=== PATIENT | male | born 1990 | race Caucasian/White ===

== ENCOUNTER 2020-11-24 08:17 | Outpatient (CLI) | payer BC, SELFPAY ==
--- NOTE | ~2020-11-24 | XR_ITS ---
EXAMINATION: XR chest 2V EXAM DATE: 11/24/2020 08:28 INDICATION: R60.9 - Edema, unspecified. TECHNIQUE: Frontal and lateral projections of the chest obtained and reviewed. There is no prior ankit dy for comparison. FINDINGS: The lungs are clear. There are no pleural effusions. The cardiomediastinal silhouette is within normal limits. There is no pneumothorax suspected. The bones and soft tissues are unremarkab le. IMPRESSION: Normal chest x-ray exam. Reviewed, dictated and finalized at location A. RAFT STRUCTURAL FITTER IMPRESSION: Normal chest x-ray exam.
== END 2020-11-24 08:18 | disposition home or self-care (01) ==
LOC: ANHBWCIMG 08:20
PROVIDERS: PCP Family Medicine; Visit Provider Family Medicine
DX: R60.9 Edema, unspecified (principal)
CPT/HCPCS: 71046

== ENCOUNTER 2020-12-16 10:26 | Emergency (ER) | payer BC, SELFPAY ==
[2020-12-16 10:36] VITALS: BP 135/59; PULSE 87; RESP 16; TEMP 36.6; O2SAT 100
[2020-12-16 10:47] VITALS: BP 135/59; PULSE 87; RESP 16; TEMP 36.6; O2SAT 100
[2020-12-16 10:55] VITALS: BP 135/59; PULSE 87; RESP 16; TEMP 36.6; O2SAT 100
--- NOTE | 2020-12-16 11:03 | ED.GENADULT ---
HPI - General Adult General Chief complaint: Allergic Reaction Stated complaint: Allergic Reaction Time Seen by Provider: 12/16/20 10:31 Source: patient Mode of arrival: ambulatory Limitations: no limitations History of Present Illness HPI narrative: 30 y/o male. PMH includes: None reported. Presents to ED today with acute complaints of possible allergic reaction/food allergen since 1999 last HS. He reports to have consumed a new rib rub while having ribs for family dinner. Pt reports that respectively 20 minutes following consumption he began to experience a 'scratchy throat and a rash to his chest'. Client had taken home Benadryl and noted relief within the hour . However, he is still concerned for residual rash now located to his bilateral wrists. There is mild pruritus, no pain. He denies further torso rash or airway concerns. No facial or oral swelling. No dyspnea, dysphagia, or involuntary drooling. He is without additional complaints upon exam. Related Data Allergies Allergy/AdvReac Type Severity Reaction Status Date / Time No Known Allergies Allergy Verified 12/16/20 10:55 Review of Systems Review of Systems: Narrative: CONSTITUTIONAL: Denies fever, chills, sweats. EYES: Denies visual changes, redness, discharge. ENT: Denies rhinorrhea, congestion, sore throat, otalgia. CARDIOVASCULAR: Denies chest pain, palpitations, edema. RESPIRATORY: Denies dyspnea, wheezing, cough GASTROINTESTINAL: Denies abdominal pain, nausea, vomiting, diarrhea. GENITOURINARY: Denies dysuria, hematuria, abnormal discharge SKIN: Positive rash and itching bilateral wrists. MUSCULOSKELETAL: Denies acute back pain, joint pain, or myalgia. NEUROLOGIC: Denies numbness, or focal weakness. PSYCHIATRIC: Denies anxiety or depression. All systems reviewed & are unremarkable except as noted in HPI and below (HPI ) [facility] Past Medical History Medical History Depression Family History Family History Father Family history of gastrointestinal disorder Acute Crohn's disease Social History Social History Smoking status: Never smoker Second hand tobacco smoke exposure: No Alcohol intake: current Comments At time of signature, I agree with nursing past medical, surgical, social and family history. There is no relevant family history pertinent to the presenting complaint. Exam Narrative: Exam Narrative: GENERAL: This is a well-nourished, well-developed patient, in no apparent distress. HEAD: normocephalic, atraumatic. EYES: PERRL. Sclera clear/white. EARS: External ears normal, auditory canals clear and without drainage. NOSE: External nose normal with no obvious nasal discharge, nares without redness, no rhinorrhea. THROAT: Mucous membranes moist, posterior pharynx clear. No pharyngeal or mucous membrane swelling. NECK: Neck supple, non-tender without lymphadenopathy, masses or thyromegaly. CARDIOVASCULAR: Regular rate and rhythm without murmurs, gallops, or rubs. RESPIRATORY: No stridor. Clear to auscultation. Breath sounds equal bilaterally. No wheezes, rales, or rhonchi. GASTROINTESTINAL: Abdomen soft, non-tender, nondistended. Bowel sounds are active. No hepato-splenomegaly, or palpable masses. No guarding. SKIN: warm, intact. With noted fine scattered red rash to inner wrists bilaterally. Superficial scratches most likely from reported pruritus. No open wounds or additional integumentary sites of involvement. NEURO: awake, alert, and oriented to person, place and time. There were no obvious focal neurologic abnormalities. Steady gait Course Course Emergency Course: -30 y/o male. -No reported PMH. -CC rash bilateral wrists secondary to potential food allergen. -Time of consumption > 12 hours ago. -No airway distress or oral involvement. -He is spe
[2020-12-16] MEDS: predniSONE 20 MG TABLET 40 MG PO (11:06)
== END 2020-12-16 11:11 | disposition home or self-care (01) ==
PROVIDERS: Emergency Provider Nurse Practitioner Adult Health; PCP Family Medicine
DX: R21 Rash and other nonspecific skin eruption (principal); T78.1XXA Other adverse food reactions, not elsewhere classified, initial encounter
CPT/HCPCS: 99213; G0463; J7512

== ENCOUNTER 2022-06-19 08:14 | Outpatient (CLI) | payer OTHER, SELFPAY ==
[2022-06-19 18:41] LABS: Alanine Aminotransferase 34 U/L (6-50); Albumin Level 4.3 g/dL (3.5-5.1); Alkaline Phosphatase 113 U/L (38-126); Aspartate Amino Transferase 131 U/L (17-59); Basophils Percent Auto 0.6 % (0.2-1.2); Bilirubin,Total 0.4 mg/dL (0.2-1.3); Eosinophils Absolute Auto 0.1 K/mm3 (0-0.3); Eosinophils Percent Auto 1.8 % (0-4.4); Hematocrit 49.5 % (42.0-52.0); Hemoglobin 15.9 g/dL (14.0-18.0); Immature Granulocyte Absolute 0.04 K/mm3 (0.00-0.031); Immature Granulocyte Percent A 0.6 % (0-0.5); Lymphocytes Absolute Auto 2.68 K/mm3 (0.9-3.2); Lymphocytes Percent Auto 39.5 % (18.3-44.2); Mean Corpuscular HGB Conc 32.1 g/dl (32-36); Mean Corpuscular Hemoglobin 30.1 pg (26-34); Mean Corpuscular Volume 93.8 fl (80-100); Mean Platelet Volume 10.2 fl (7.4-10.4); Monocytes Absolute Auto 0.8 K/mm3 (0.1-0.6); Monocytes Percent Auto 11.2 % (2.6-8.5); Neutrophils Absolute Auto 3.2 K/mm3 (1.3-6.7); Neutrophils Percent Auto 46.3 % (45.5-73.1); Platelet Count Result 207 k/mm3 (150-375); Red Blood Count 5.28 M/mm3 (4.6-6.20); Red Cell Distribution Width 13.3 % (11.5-14.5); White Blood Count 6.8 K/mm3 (4.5-10.0)
[2022-06-24 16:29] LABS: Testosterone Free 189.9 pg/mL (35.0-155.0); Testosterone Total 671 ng/dL (250-1100)
[2022-06-25 14:36] LABS: Estrogen 179.5 pg/mL (60-190)
== END 2022-06-19 08:15 | disposition home or self-care (01) ==
LOC: ANHBWCLAB 08:15
PROVIDERS: PCP Family Medicine; Visit Provider Family Medicine
DX: D75.1 Secondary polycythemia (principal); E29.1 Testicular hypofunction; R74.8 Abnormal levels of other serum enzymes; R79.89 Other specified abnormal findings of blood chemistry; R73.09 Other abnormal glucose
CPT/HCPCS: 36415; 80076; 82672; 84402; 84403; 85025

== ENCOUNTER → 2025-06-17 13:03 | Outpatient (CLI) | payer BC, SELFPAY ==
--- NOTE | ~2025-06-17 | XR_ITS ---
EXAMINATION: XR shoulder LT min 2V, XR shoulder RT min 2V DATE: 06/17/2025 13:24 INDICATION: Bilateral shoulder joint effusions TECHNIQUE: 1. AP internally and externally rotated, AP oblique externally rotated and transscapular Y views of t he right shoulder were obtained. 2. AP internally and externally rotated, AP oblique externally rotated and transscapular Y views of t he left shoulder were obtained. COMPARISON: None FINDINGS: Right shoulder: Normal alignment. No fracture. Glenohumeral joint is normal. Mild acromioclavicular osteoarthritis. There is soft tissue swelling cephalad to the lateral head of the right clavicle slightly medial to t he acromioclavicular joint space against joint effusion although could represent a ganglion cyst. Sof t tissues are otherwise unremarkable. Right lung is clear with no pleural effusion. Left shoulder: Normal alignment. No fracture. Glenohumeral joint is normal. Mild left acromioclavicular osteoarthri tis. Nonspecific 9.6 x 3.7 cm subcutaneous mass lateral to the proximal left humerus with suggestion of internal layering fat fluid levels. Visualized portion of the left lung which excludes the left lana ng base is clear. IMPRESSION: 1. Mild bilateral acromioclavicular osteoarthritis. No acute osseous abnormality. 2. 9.6 x 3.7 cm lobular mass at the left shoulder lateral to the proximal left humerus with suggestio n of internal fat/fluid levels which could represent a complex cyst, atypical lipoma or with other ne oplasm either benign or malignant. Consider further evaluation with pre and postcontrast MRI. 3. Nonspecific mild focal soft tissue swelling cephalad to the lateral head of the right clavicle wit hout definitive mass. Could also consider further evaluation with pre and postcontrast MRI or ultraso und. Reviewed, dictated and finalized at location A. IMPRESSION: 1. Mild bilateral acromioclavicular osteoarthritis. No acute osseous abnormalit y. 2. 9.6 x 3.7 cm lobular mass at the left shoulder lateral to the proximal left humerus with suggestion of internal fat/fluid levels which could represent a co mplex cyst, atypical lipoma or with other neoplasm either benign or malignant. Consider further evaluation with pre and postcontrast MRI. 3. Nonspecific mild focal soft tissue swelling cephalad to the lateral head of the right clavicle without definitive mass. Could also consider further evaluat ion with pre and postcontrast MRI or ultrasound.
--- NOTE | ~2025-06-17 | XR_ITS ---
EXAMINATION: XR chest 2V DATE: 06/17/2025 13:23 INDICATION: Shortness of breath. Hemoptysis TECHNIQUE: Frontal and lateral images of the chest were obtained. COMPARISON: None FINDINGS: Heart is not enlarged. No pneumothorax. No pleural effusion. No free air under the diaphragm. No foca l pulmonary consolidation. IMPRESSION: 1. No focal pulmonary consolidation. If symptoms persist or worsen, consider a short-term follow-up study or additional imaging for furthe r assessment. Reviewed, dictated and finalized at location A. IMPRESSION: 1. No focal pulmonary consolidation. If symptoms persist or worsen, consider a short-term follow-up study or additio nal imaging for further assessment.
--- OUTSIDE RECORDS SUMMARY | 2025-06-17 13:07 | XMS_ITS | Patient Health Record ---
Author Organization [facility] [employer] Address [address] [facility] [address] [place] [address] Care Team Providers Care Pecan Grower Name Role Phone Zen Solorio Unavailable [phone] Reason For Referral No Information Medications Medication SIG (Take, Route, Frequency, Duration) Notes Start Date End Date Status Amoxicillin-Pot Clavulanate 875-125 MG Oral Active hydrOXYzine HCl 50 MG Oral Active buPROPion HCl ER (XL) 150 MG Oral Active ID Now COVID-19 In Vitro *Reorder from [facility] for eRx and Interaction Alerts* Active FLUoxetine HCl 20 MG Oral Active FLUoxetine HCl 40 MG Oral Active Plan Of Treatment No Information Insurance Providers Payer Name Payer Address Payer Phone Subscriber Number Group Number Insured Name Patient Relationship to Insured Coverage Start Date Coverage End Date [facility] [address] [place] [address] [id number] ANGEL ECHEVERRIA Self - patient is the insured
--- OUTSIDE RECORDS SUMMARY | 2025-06-17 13:07 | XMS_ITS | Continuity of Care Document ---
Author Organization [facility], L Address [address] [place] [address] Phone Care Team Providers Care Conductor Freight Name Role Phone Brooks OD, Meredith Unavailable [...] Provider Providers Copied on Encounter [facility], [address] [place] [address], [id number] , tel:[phone] [facility] No Information 0 7 Brooks Harper. [address] [place] [address], [facility], [place]. tel:[phone], [id number] , [phone] [facility] No Information b-0 7 Brooks Harper. [address] [place] [address], [id number], [place]. tel:[phone] [facility], [address] [place] [address], [id number] , [place] tel:[phone] [facility] no problems with vision and no complaints (chief complaint) Myopia, bilateral Mar- 7-201 6 Oberreiter Zuleima. [address], [place], [place], [id number], [place]. [phone] Referring Provider: Elvin Sanchez, [address] [place] [address], [address] . tel:[phone] [facility], [address] [place] [address], [id number] , [place] tel:[phone] [facility] No Information Jan- 7 6 Oberreiter Zuleima. [address], [place], [place], [id number], [place]. tel:[phone] [facility], [address] [place] [address], [id number] , [place] tel:[phone] [facility] No Information Aug-0 8-201 5 Brooks Meredith. [address] [place] [address], [facility], . [phone] Referring Provider: Elvin Sanchez, [address] [place] [address], [id number] . tel:[phone] [facility], [address] [place] [address], [id number] , [place] tel:[phone] [facility] no problems with vision and no complaints (chief complaint)d efers dilation (chief complaint) MyopiaOther chronic allergic conjunctivitis Oct-2 -201 4 Oberreiter Zuleima. [address], [place], [place], [id number], [place]. tel:[phone] Referring Provider: Elvin Sanchez, [address] [place] [address], [id number] . tel:[phone] [facility], [address] [place] [address], [id number] , [place] tel: [phone] [facility] No Information 0 4 Bercarinetacatia Ruckera. [address] [place] [address], [id number], [place]. tel:[phone] Referring Provider: Elvin Sanchez, [address] [place] [address], [id number] . tel:[phone] [facility], [address] [place] [address], [id number] , [place] tel: [phone] [facility] No Information 4 Rooseveltcarinetacatia Albertaa. [address] [place] [address], [id number], [place]. tel:[phone] Referring Provider: Elvin Sanchez, [address] [place] [address], [address] . tel:[phone] [facility], [address] [place] [address], [id number] , tel:[phone] [facility] No Information 4 Rooseveltcarinetacatia Oconnor. [address] [place] [address], [id number], [place]. tel:[phone] Referring Provider: Elvin Sanchez, [address] [place] [address], [id number] . tel:[phone] [facility], [address] [place] [address], [id number] , [place] tel:[phone] [facility] No Information 4 Hamidatacatia Albertamila. [address] [place] [address], [id number], [place]. tel:[phone] Referring Provider: Elvin Sanchez, [address] [place] [address], [id number] . tel:[phone] [facility], [address] [place] [address], [id number] , tel:[phone] [facility] No Information 3 Bereketab Elilta. [address] [place] [address], [id number], [place]. tel:[phone] Referring Provider: Elvin Sanchez, [address] [place] [address], [id number] . tel:[phone] OFFICE/OUTPA TIENT VISIT, EST [facility], [address] [place] [address], [id number] , tel:[phone] [facility] Acute atopic conjunctivitisOthe r chronic allergic conjunctivitis 3 Bereketab Elilta. [address] [place] [address], [id number], [place]. tel:[phone] Referring Provider: Elvin Sanchez, [address] [place] [address], [id number] . tel:[phone] [facility], [address] [place] [address], [id number] , tel:[phone] [facility] Acute atopic conjunctivitisOthe r chronic allergic conjunctivitisMyop iaVitreous degeneration 3 Bereketab Elilta. [address] [place] [address], [id number], [place]. tel:[phone] Referring Provider: Elvin Sanchez, [address] [place] [address], [id number] . tel:[phone] [facility], [address] [place] [address], [id number] , tel:[phone] [facility] No Information 3 Bereketab Albertalta. [address] [place] [address], [id number], [place]. tel:[phone] Referring Provider: Elvin Sanchez, [address] [place] [address], [id number] . tel:[phone] [facility], [address] [place] [address], [id number] , tel:[phone] [facility] No Information 3 Bereketab Albertaa. [address] [place] [address], [id number], [place]. tel:[phone] Referring Provider: Elvin Sanchez, [address] [place] [address], [address] . tel:[phone] [facility], [address] [place] [address], [id number] , tel:[phone] [facility] No Information 3 Bereketab Albertaa. [address] [place] [address], [id number], [place]. tel:[phone] Referring Provider: Elvin Sanchez, [address] [place] [address], [address] . tel:[phone] [facility], [address] [place] [address], [id number] , tel:[phone] [facility] No Information 2 Bereketab Elilta. [address] [place] [address], [id number], [place]. tel:[phone] Referring Provider: Elvin Sanchez, [address] [place] [address], [address] . tel:[phone] [facility], [address] [place] [address], [id number] , tel:[phone] [facility] No Information 2 Bereketab Elilta. [address] [place] [address], [id number], [place]. tel:[phone] Referring Provider: Elvin Sanchez, [address] [place] [address], [address] . tel:[phone] [facility], [address] [place] [address], [id number] , tel:[phone] [facility] MyopiaVitreous degeneration 2 Bereketacatia Albertaa. [address] [place] [address], [id number], [place]. tel:[phone] Referring Provider: Elvin Sanchez, [address] [place] [address], [id number] . tel:[phone] [facility], [address] [place] [address], [id number] , tel: [phone] [facility] No Information 2 Bereketab Elilta. [address] [place] [address], [id number], [place]. tel:[phone] Referring Provider: Elvin Sanchez, [address] [place] [address], [address] . tel:[phone] [facility], [address] [place] [address], [id number] , [place] tel: [phone] [facility] No Information 2 Bereketab Elilta. [address] [place] [address], [id number], [place]. tel:[phone] [facility], [address] [place] [address], [id number] , [place] tel: [phone] [facility] No Information 2 Bereketab Elilta. [address] [place] [address], [id number], [place]. tel:[phone] Referring Provider: Elvin Sacnhez, [address] [place] [address], [address] . tel:[phone] [facility], [address] [place] [address], [id number] , tel:[phone] [facility] No Information 2 Bernicola Oconnor. [address] [place] [address], [id number], [place]. tel:[phone] Referring Provider: Elvin Sanchez, [address] [place] [address], [address] . tel:[phone] [facility], [address] [place] [address], [id number] , tel:[phone] [facility] No Information 1 Laura Oconnor. [address] [place] [address], [id number], [place]. tel:[phone] Referring Provider: Elvin Sanchez, [address] [place] [address], [address] . tel:[phone] [facility], [address] [place] [address], [id number] , tel:[phone] [facility] No Information 1 Laura Oconnor. [address] [place] [address], [id number], [place]. tel:[phone] Referring Provider: Elvin Sanchez, [address] [place] [address], [address] . tel:[phone] [facility], [address] [place] [address], [id number] , tel:[phone] [facility] No Information 1 Laura Oconnor. [address] [place] [address], [id number], [place]. tel:[phone] Referring Provider: Elvin Sanchez, [address] [place] [address], [address] . tel:[phone] [facility], [address] [place] [address], [id number] , tel:[phone] [facility] No Information 0201 1 Bereketab Alkaa. [address] [place] [address], [id number], [place]. tel:[phone] Referring Provider: Elvin Sanchez, [address] [place] [address], [id number] . tel:[phone] [facility], [address] [place] [address], [id number] , tel: [phone] [facility] No Information 0 Bereketab Albertaa. [address] [place] [address], [id number], [place]. tel:[phone] Referring Provider: Elvin Sanchez, [address] [place] [address], [address] . tel:[phone] [facility], [address] [place] [address], [id number] , tel: [phone] [facility] No Information 9201 0 Bereketab Elilta. [address] [place] [address], [id number], [place]. tel:[phone] Referring Provider: Elvin Sanchez, [address] [place] [address], [address] . tel:[phone] [facility], [address] [place] [address], [id number] , tel: [phone] [facility] No Information 7201 0 Bereketab Elvin. [address] [place] [address], [id number], [place]. tel:[phone] Referring Provider: Elvin Sanchez, [address] [place] [address], [address] . tel:[phone] [facility], [facility], [address] [place] [address], [id number] , [phone] [facility] No Information 0 Laura Oconnor. [address] [place] [address], [id number], [place]. tel:[phone] Family History Family Member Type Diagnosis Age At Onset Problem (finding) No Family history of St rabismus Great Grandfather Problem (finding) Diabetes mellitus Problem (finding) Family history of Heart Disease Problem (finding) No Family hist ory of Macular Degeneration Great Grandmother Problem (finding) glaucoma Problem (finding) No Family history of Ar thritis Great Grandfather Problem (finding) cataract Problem (finding) Family history of Respiratory Disease Problem (finding) No Family hist ory of Retinal Disorders Problem (finding) No Family history of As thma Problem (finding) No Family history of St roke Problem (finding) Family history of HBP Payers Payer name Insurance type Covered alliance party ID Authoriza tion(s) No Information Social History [...] exam today. No damage from cl wear. - Return in 1 year w ith EB for C/L Ref T & D. Related to Allergic Conjunctivitis Allergic Conjunctivi tis OU. Condition: improving. GPC [...] materials provided:none needed. Related to Allergic Conjunctivitis Allergic Conjunctivi tis OU. Condition: new prob, [...] rec. Poly in lenses. Related to PVD - Return in 2 weeks with EB for T and slamp. Related to PVD - Return in 1 year w ith EB for Ref T & D. Related to PVD Myopia OU. Condition : stable. PVD OU. Condition: stable. - PVD OU-ed pt on s/sx of RD, pt. to call stat if he notices any increase in theses.Myopia OU-Rx is pretty stable, glasses update is optional. Will have pt. stay with . [employer]. Rec. Uv protection when outdoors. Educational materials provided:none needed. Related to PVD Assessments Type Assessment Date No Information Patient Care Teams Name Effective Dates (start - stop) Status Members No Information
== END ==
PROVIDERS: PCP Nurse Practitioner Adult Health; Visit Provider Nurse Practitioner Adult Health
DX: M19.012 Primary osteoarthritis, left shoulder (principal); M25.412 Effusion, left shoulder; M19.011 Primary osteoarthritis, right shoulder; M25.411 Effusion, right shoulder; M85.612 Other cyst of bone, left shoulder; R04.2 Hemoptysis
CPT/HCPCS: 71046; 73030

== ENCOUNTER 2025-07-01 01:52 | Day surgery (SDC) | payer BC, SELFPAY ==
--- OUTSIDE RECORDS SUMMARY | 2016-12-07 05:04 | XMS_ITS | Continuity of Care Document ---
Author Organization [facility], L Address [address] [place] [address] Phone Care Team Providers Care Tobacco Grower Name Role Phone Brooks OD, Meredith Unavailable Unavailable Allergies, Adverse Reactions, Alerts Substance Reaction Status Criticality No Known Drug Allergies Active No I nformation Procedures Procedure Date CONTACT LENS, SOFT MULTI PKG SPHERE EYE EXAM, EXISTING PATIENT VISION REFRACTION OPTIONAL UPDATE CONTACT LENS, DISPOSABLE CONTACT LENS, DISPOSABLE EYE EXAM, EXISTING PATIENT VISION REFRACTION NO UPDATE CONTACT LENS EXAM CONTACT LENS, SOFT MULTI PKG SPHERE CONTACT LENS, SOFT MULTI PKG SPHERE CONTACT LENS, SOFT MULTI PKG SPHERE CONTACT LENS, SOFT MULTI PKG SPHERE CONTACT LENS, SOFT MULTI PKG SPHERE OFFICE/OUTPATIENT VISIT, EST EYE EXAM, EXISTING PATIENT VISION REFRACTION UPDATE CONTACT LENS EXAM CONTACT LENS, SOFT MULTI PKG SPHERE Vision svcs frames purchases Single Vision Lens Lens variab asphericity sing Lens Hi Index 1.66/1.67 Single Vision Lens Lens variab asphericity sing Lens Hi Index 1.66/1.67 A/R Standard UV Lens CONTACT LENS, SOFT MULTI PKG SPHERE CONTACT LENS, SOFT MULTI PKG SPHERE CONTACT LENS, SOFT MULTI PKG SPHERE INCLUDED CONTACT LENS EXAM EYE EXAM, EXISTING PATIENT VISION REFRACTION UPDATE CONTACT LENS EXAM CONTACT LENS, SOFT MULTI PKG SPHERE CONTACT LENS, SOFT MULTI PKG SPHERE CONTACT LENS, SOFT MULTI PKG SPHERE CONTACT LENS, SOFT MULTI PKG SPHERE INCLUDED CONTACT LENS EXAM CONTACT LENS EXAM CONTACT LENS, SOFT MULTI PKG TINTED EYE EXAM, EXISTING PATIENT VISION REFRACTION OPTIONAL UPDATE CONTACT LENS, SOFT MULTI PKG SPHERE CONTACT LENS EXAM CONTACT LENS, SOFT MULTI PKG SPHERE INCLUDED CONTACT LENS EXAM EYE EXAM, EXISTING PATIENT VISION REFRACTION OPTIONAL UPDATE CONTACT LENS EXAM CONTACT LENS, SOFT MULTI PKG SPHERE Advance Directives Directive Yes / No Effective Date File Name No Information Encounters Encounter Description Practice Location Reason(s) For Visit Diagnoses Date Provider Providers Copied on Encounter [facility], [address] [place] [address], [id number] , tel:[phone] [facility] No Information 0 7 Brooks Harper. [address] [place] [address], [facility], [place]. tel:[phone], [id number] , [phone] [facility] No Information b-0 7 Brooks Harper. [address] [place] [address], [id number], [place]. tel:[phone] [facility], [address] [place] [address], [id number] , [place] tel:[phone] [facility] no problems with vision and no complaints (chief complaint) Myopia, bilateral Mar- 7-201 6 Oberreiter Zuleima. [address], [place], [place], [id number], [place]. [phone] Referring Provider: Elvin Sanhcez, [address] [place] [address], [id number] . tel:[phone] [facility], [address] [place] [address], [id number] , [place] tel:[phone] [facility] No Information Jan- 7 6 Oberreiter Zuleima. [address], [place], [place], [id number], [place]. tel:[phone] [facility], [address] [place] [address], [id number] , [place] tel:[phone] [facility] No Information Aug-0 8-201 5 Brooks Meredith. [address] [place] [address], [facility], . [phone] Referring Provider: Elvin Sanchez, [address] [place] [address], [id number] . tel:[phone] [facility], [address] [place] [address], [id number] , [place] tel:[phone] [facility] no problems with vision and no complaints (chief complaint)d efers dilation (chief complaint) MyopiaOther chronic allergic conjunctivitis Oct-2 -201 4 Oberreiter Zuleima. [address], [place], [place], [id number], [place]. tel:[phone] Referring Provider: Elvin Sanchez, [address] [place] [address], [id number] . tel:[phone] [facility], [address] [place] [address], [id number] , [place] tel: [phone] [facility] No Information 0 4 Bercarinetacatia Ruckera. [address] [place] [address], [id number], [place]. tel:[phone] Referring Provider: Elvin Sanchez, [address] [place] [address], [id number] . tel:[phone] [facility], [address] [place] [address], [id number] , [place] tel: [phone] [facility] No Information 4 Rooseveltcarinetacatia Albertaa. [address] [place] [address], [id number], [place]. tel:[phone] Referring Provider: Elvin Sanchez, [address] [place] [address], [id number] . tel:[phone] [facility], [address] [place] [address], [id number] , tel:[phone] [facility] No Information 4 Rooseveltcarinetacatia Oconnor. [address] [place] [address], [id number], [place]. tel:[phone] Referring Provider: Elvin Sanchez, [address] [place] [address], [address] . tel:[phone] [facility], [address] [place] [address], [id number] , [place] tel:[phone] [facility] No Information 4 Hamidatacatia Albertamila. [address] [place] [address], [id number], [place]. tel:[phone] Referring Provider: Elvin Sanchez, [address] [place] [address], [id number] . tel:[phone] [facility], [address] [place] [address], [id number] , tel:[phone] [facility] No Information 3 Bereketab Elilta. [address] [place] [address], [id number], [place]. tel:[phone] Referring Provider: Elvin Sanchez, [address] [place] [address], [address] . tel:[phone] OFFICE/OUTPA TIENT VISIT, EST [facility], [address] [place] [address], [id number] , tel:[phone] [facility] Acute atopic conjunctivitisOthe r chronic allergic conjunctivitis 3 Bereketab Elilta. [address] [place] [address], [id number], [place]. tel:[phone] Referring Provider: Elvin Sanchez, [address] [place] [address], [address] . tel:[phone] [facility], [address] [place] [address], [id number] , tel:[phone] [facility] Acute atopic conjunctivitisOthe r chronic allergic conjunctivitisMyop iaVitreous degeneration 3 Bereketab Elilta. [address] [place] [address], [id number], [place]. tel:[phone] Referring Provider: Elvin Sanchez, [address] [place] [address], [id number] . tel:[phone] [facility], [address] [place] [address], [id number] , tel:[phone] [facility] No Information 3 Bereketab Albertalta. [address] [place] [address], [id number], [place]. tel:[phone] Referring Provider: Elvin Sanchez, [address] [place] [address], [id number] . tel:[phone] [facility], [address] [place] [address], [id number] , tel:[phone] [facility] No Information 3 Bereketab Albertaa. [address] [place] [address], [id number], [place]. tel:[phone] Referring Provider: Elvin Sanchez, [address] [place] [address], [address] . tel:[phone] [facility], [address] [place] [address], [id number] , tel:[phone] [facility] No Information 3 Bereketab Albertaa. [address] [place] [address], [id number], [place]. tel:[phone] Referring Provider: Elvin Sanchez, [address] [place] [address], [address] . tel:[phone] [facility], [address] [place] [address], [id number] , tel:[phone] [facility] No Information 2 Bereketab Elilta. [address] [place] [address], [id number], [place]. tel:[phone] Referring Provider: Elvin Sanchez, [address] [place] [address], [address] . tel:[phone] [facility], [address] [place] [address], [id number] , tel:[phone] [facility] No Information 2 Bereketab Elilta. [address] [place] [address], [id number], [place]. tel:[phone] Referring Provider: Elvin Sanchez, [address] [place] [address], [address] . tel:[phone] [facility], [address] [place] [address], [id number] , tel:[phone] [facility] MyopiaVitreous degeneration 2 Bereketacatia Albertaa. [address] [place] [address], [id number], [place]. tel:[phone] Referring Provider: Elvin Sanchez, [address] [place] [address], [address] . tel:[phone] [facility], [address] [place] [address], [id number] , tel: [phone] [facility] No Information 2 Bereketab Elilta. [address] [place] [address], [id number], [place]. tel:[phone] Referring Provider: Elvin Sanchez, [address] [place] [address], [address] . tel:[phone] [facility], [address] [place] [address], [id number] , [place] tel: [phone] [facility] No Information 2 Bereketab Elilta. [address] [place] [address], [id number], [place]. tel:[phone] [facility], [address] [place] [address], [id number] , [place] tel: [phone] [facility] No Information 2 Bereketab Elilta. [address] [place] [address], [id number], [place]. tel:[phone] Referring Provider: Elvin Sanchez, [address] [place] [address], [address] . tel:[phone] [facility], [address] [place] [address], [id number] , tel:[phone] [facility] No Information 2 Bernicola Oconnor. [address] [place] [address], [id number], [place]. tel:[phone] Referring Provider: Elvin Sanchez, [address] [place] [address], [address] . tel:[phone] [facility], [address] [place] [address], [id number] , tel:[phone] [facility] No Information 1 Laura Oconnor. [address] [place] [address], [id number], [place]. tel:[phone] Referring Provider: Elvin Sanchez, [address] [place] [address], [address] . tel:[phone] [facility], [address] [place] [address], [id number] , tel:[phone] [facility] No Information 1 Laura Oconnor. [address] [place] [address], [id number], [place]. tel:[phone] Referring Provider: Elvin Sanchez, [address] [place] [address], [address] . tel:[phone] [facility], [address] [place] [address], [id number] , tel:[phone] [facility] No Information 1 Laura Oconnor. [address] [place] [address], [id number], [place]. tel:[phone] Referring Provider: Elvin Sanchez, [address] [place] [address], [address] . tel:[phone] [facility], [address] [place] [address], [id number] , tel:[phone] [facility] No Information 0201 1 Bereketab Alkaa. [address] [place] [address], [id number], [place]. tel:[phone] Referring Provider: Elvin Snachez, [address] [place] [address], [address] . tel:[phone] [facility], [address] [place] [address], [id number] , tel: [phone] [facility] No Information 0 Bereketab Albertaa. [address] [place] [address], [id number], [place]. tel:[phone] Referring Provider: Elvin Sanchez, [address] [place] [address], [address] . tel:[phone] [facility], [address] [place] [address], [id number] , tel: [phone] [facility] No Information 9201 0 Bereketab Elilta. [address] [place] [address], [id number], [place]. tel:[phone] Referring Provider: Elvin Sanchez, [address] [place] [address], [address] . tel:[phone] [facility], [address] [place] [address], [id number] , tel: [phone] [facility] No Information 7201 0 Bereketab Elvin. [address] [place] [address], [id number], . tel:[phone] Referring Provider: Elvin Sanchez, [address] [place] [address], [address] . tel:[phone] [facility], [facility], [address] [place] [address], [id number] , tel:[phone] [facility] No Information 0 Laura Oconnor. [address] [place] [address], [id number], [place]. tel:[phone] Family History Family Member Type Diagnosis Age At Onset Problem (finding) Family history of HBP Problem (finding) No Family history of St roke Problem (finding) No Family history of As thma Problem (finding) No Family hist ory of Retinal Disorders Problem (finding) Family history of Respiratory Disease Great Grandfather Problem (finding) cataract Problem (finding) No Family history of Ar thritis Great Grandmother Problem (finding) glaucoma Problem (finding) No Family hist ory of Macular Degeneration Problem (finding) Family history of Heart Disease Great Grandfather Problem (finding) Diabetes mellitus Problem (finding) No Family history of St rabismus Payers Payer name Insurance type Covered libertarian ID Authoriza tion(s) No Information Social History Type Description Quantity Date Captured Comments Sex Male Smoking Status No Information Chief Complaint And Reason For Visit No Information Reason For Referral Reason For Referral No Information History Of Present Illness Encounter Date Complaint History Of Prese nt Illness no problems with vis ion and no complaints The 25 Year old male presents for annual exam. Requesting Gls and CL RX update. Patient has a HX of Myopia. Patient reports of no problems with vision and no complaints in the right eye and left eye. since last exam 10/2014 ago. Vision good, stable and constant D & N c gls.. The patient denies pain or discomfort. No gtts no problems with vis ion and no complaints The 24 Year old male with Hx of Allergic Conjunctivitis OU, PVD OU (resolved), Myopia, and GPC BUL presents with report of no problems with vision and no complaints in the right eye and left eye since last exam. Vision good, stable and constant D & N c gls. or contacts. Didn't bring glasses. No eye drops. The patient denies pain or discomfort. defers dilation The patient defe rs dilation Functional Status Date Functional Assessmen t No Information Instructions Date Instruction Additional Infor lennie Return in 1 year wit h ANGELIQUE for C/L, Refract, T & D. Related to Myopia, bilateral Impression/Plan - No change in glasses or CL Rx. Healthy eye exam today. No damage from CL wear. See pt back yearly. Related to Myopia, bilateral Follow up - Return i n 1 year with ANGELIQUE for C/L, Refract, T & D. Related to Myopia, bilateral Follow up - Return i n 1 year with ANGELIQUE for C/L, Refract, T & D. Impression/Plan - 1. Refractive error OU: No change in glasses/CL Rx today. 2. Allergies OU: Stable. Continue using clear care to clean CL. Healthy eye exam today. No damage from cl wear. Allergic Conjunctivi tis OU. Condition: improving. GPC OU. Condition: improving. - OU are looking much better. Cont Clear Care to clean his contacts. Cont Alrex OU BID X 4 d, then Q d X 4 d then d/c. After pt is done with alrex he can use Lastacaft OU qd PRN for allergies. Try out the sample and if it works let us know and we can erx. Educational materials provided:none needed. Related to Allergic Conjunctivitis - Return in 1 year w ith EB for C/L Ref T & D. Related to Allergic Conjunctivitis - Return in 2 weeks with EB for T and slamp. Related to PVD Allergic Conjunctivi tis OU. Condition: new prob, no addtl w/u needed. GPC OU. Condition: new prob, no addtl w/u needed. Myopia OU. Condition: stable. PVD OU. Condition: stable. - Allergies/GPC OU-bumps are pretty big under UL OU. With contact wear it can make it uncomfortable. The bumps never go away we just need to reduce the size of them. It would be to pts benefit to lay off of contact wear, but pt does not have back up glasses. Pt needs to use Alrex OU TID, shake bottle well before using. Put one gtt in 15 min before contact, as soon as pt gets home take contacts out and put another gtt, then one more right before bed. When pt is done with Alrex will have pt use allergy eye gtts. Will disp a fresh pair of contacts today. Myopia OU-pt can update specs today, rec. pt does have glasses made so he can wear when not wearing contacts. Back of the eye is nice and healthy. Pt is ok to order year supply of contacts, but need to see pt back to check bumps. Educational materials provided:none needed. Do not rec. Poly in lenses. Related to PVD Myopia OU. Condition : stable. PVD OU. Condition: stable. - PVD OU-ed pt on s/sx of RD, pt. to call stat if he notices any increase in theses.Myopia OU-Rx is pretty stable, glasses update is optional. Will have pt. stay with Ac. Oaelijahs. Rec. Uv protection when outdoors. Educational materials provided:none needed. Related to PVD - Return in 1 year w malgorzata MOORE for Ref T & D. Related to PVD Assessments Type Assessment Date No Information Patient Care Teams Name Effective Dates (start - stop) Status Members No Information
[2025-06-17 13:34] VITALS: BMI 31.6
--- OUTSIDE RECORDS SUMMARY | 2025-07-01 01:55 | XMS_ITS | Patient Health Record ---
Author Organization [facility] [employer] Address [address] [facility] [address] [place] [address] Care Team Providers Care Strategic Account Director Name Role Phone Zen Solorio Unavailable [phone] Reason For Referral No Information Medications Medication SIG (Take, Route, Frequency, Duration) Notes Start Date End Date Status Amoxicillin-Pot Clavulanate 875-125 MG Tablet Oral Active hydrOXYzine HCl 50 MG Tablet Oral Active buPROPion HCl ER (XL) 150 MG Tablet Extended Release 24 Hour Oral Active ID Now COVID-19 Kit In Vitro *Reorder [facility] for eRx and Interaction Alerts* Active FLUoxetine HCl 20 MG Capsule Oral Active FLUoxetine HCl 40 MG Capsule Oral Active Plan Of Treatment No Information Insurance Providers Payer Name Payer Address Payer Phone Subscriber Number Group Number Insured Name Patient Relationship to Insured Coverage Start Date Coverage End Date [facility] [address] [phone] [id number] ANGEL ECHEVERRIA Self - patient is the insured
[2025-07-01 09:07] VITALS: BP 131/81; PULSE 84; RESP 16; TEMP 36.5; O2SAT 100; BMI 30.9
[2025-07-01] MEDS: LACTATED RINGERS 1,000 ML 150 ML IV CONT (09:14)
--- NOTE | 2025-07-01 09:21 | P.PNAN_ITS ---
Anes - Initial Pre Proc Eval Procedure: Operation Date: 07/01/25 10:15 Proposed Procedures p Esophagogastroduodenoscopy - Jermaine Chilel MD Date/Time: 07/01/25 09:21 Surgeon: Jermaine Chilel MD Pre Op Diagnosis: Hemoptysis Patient Data Age: 35 Gender: M Height: 1.78 m Weight: 97.7 kg Last Vital Signs Temp 36.5 C 07/01/25 09:07 Pulse 84 07/01/25 09:07 Resp 16 07/01/25 09:07 BP 131/81 07/01/25 09:07 Pulse Ox 100 07/01/25 09:07 O2 Del Method Room Air 07/01/25 09:07 Allergies Allergy/AdvReac Type Severity Reaction Status Date / Time No Known Allergies Allergy Verified 07/01/25 09:06 Home Medications ?Medication ?Instructions ?Recorded ?Confirmed ?Type omeprazole 40 mg capsule,delayed 40 mg PO DAILY #90 ca ps 06/14/25 07/01/25 Rx release valacyclovir 1 gram tablet 2,000 mg (2 x 1 gram) PO BI D PRN 06/21/25 Rx herpetic outbreak #4 tabs Patient hx anesthesia problems: none Family hx anesthesia problems: none Results Review: All pre-operative results and documents have been reviewed as part of the pre- operative evaluation. [facility] Past Medical History Medical History (Updated 07/01/25 @ 09:24 by Isaac Calhoun DO) GERD (gastroesophageal reflux disease) Asthma Panic anxiety syndrome Depression Family History Family History Father Family history of gastrointestinal disorder Acute Crohn's disease Social History Social History (Updated 07/01/25 @ 09:33 by Isaac Calhoun DO) Smoking status: Never smoker Second hand tobacco smoke exposure: No Alcohol intake: current Substance use: current Substance use type: marijuana Last use: daily Lack of Transportation: No Lack of Food: Never True Current Housing: I Have Housing Concerned About Future Housing: No Difficulty Paying Gas/Electric Bills: No Difficulty Paying for Meds: No Currently Unemployed: No Education: Master's Degree or Higher Difficulty w/ Childcare or Family Care: No Living arrangements: alone Spiritual care concerns: No Anes - Eval Final PreProcedure Day of Procedure 07/01/25 09:21 Patient weight: obese Heart: regular rate and rhythm Lungs: clear to auscultation Airway: Mallampati scale class II Neurological: alert and oriented Last oral intake: >/= 8 hours ASA classification: III Emergent: no Anesthetic plan: proceed Anesthesia type and monitoring: general GIVS and standard monitoring Results Review: All pre-operative results and documents have been reviewed as part of the pre- operative evaluation. Informed Consent: The patient's anesthetic plan and its attendant risks and benefits were discussed with the patient/family/POA. Questions were solicited and answers provided to the satisfaction of the patient/family/POA.
--- NOTE | 2025-07-01 09:36 | P.HP_ITS ---
History of Present Illness History of Present Illness Consent: Risks, benefits, and alternatives have been discussed and questions answered. Patient agrees to proceed with procedure. Chief complaint: Hemoptysis Narrative: Vinod Betancourt is a 35 year old male here for dyspepsia recently started using omeprazole, also about 1 month ago had what seems to be hemoptysis (phlegm with streak of pinkish mucus) Review of Systems Review of Systems: All systems reviewed & are unremarkable except as noted in HPI and below PMFSH Past Medical History Medical History (Updated 07/01/25 @ 09:37 by Jermaine Chilel MD) Dyspepsia GERD (gastroesophageal reflux disease) Asthma Panic anxiety syndrome Depression Family History Family History Father Family history of gastrointestinal disorder Acute Crohn's disease Social History Social History (Updated 07/01/25 @ 09:33 by Isaac Calhoun, ) Smoking status: Never smoker Second hand tobacco smoke exposure: No Alcohol intake: current Substance use: current Substance use type: marijuana Last use: daily Lack of Transportation: No Lack of Food: Never True Current Housing: I Have Housing Concerned About Future Housing: No Difficulty Paying Gas/Electric Bills: No Difficulty Paying for Meds: No Currently Unemployed: No Education: Master's Degree or Higher Difficulty w/ Childcare or Family Care: No Living arrangements: alone Spiritual care concerns: No Meds Home Medications and Allergies Home Medications ?Medication ?Instructions ?Recorded ?Confirmed ?Type omeprazole 40 mg capsule,delayed 40 mg PO DAILY #90 ca ps 06/14/25 07/01/25 Rx release valacyclovir 1 gram tablet 2,000 mg (2 x 1 gram) PO BI D PRN 06/21/25 Rx herpetic outbreak #4 tabs Allergies Allergy/AdvReac Type Severity Reaction Status Date / Time No Known Allergies Allergy Verified 07/01/25 09:06 Vital Signs Vital Signs - 24 hr 07/01/25 09:07 Temperature 97.7 F Pulse Rate 84 Respiratory Rate 16 Blood Pressure 131/81 Pulse Oximetry 100 Oxygen Delivery Room Air Exam Const: General: comfortable and no acute distress HENMT: Face/Nose/Sinus: Normal nares present Eyes: General: appearance normal, both eyes and all related structures Neck: Neck: no JVD Resp: Auscultation: clear to auscultation bilaterally Cardio: Rate: regular rate Rhythm: regular rhythm GI: Inspection: non-distended GI Palp: Yes Soft to palpation Skin: General skin exam: normal color Neuro: General: gait normal Speech: normal speech Extrem: General: normal to inspection Psych: Mental Status: mental status grossly normal Assessment and Plan Assessment and plan (1) Dyspepsia: Code(s): R10.13 - Epigastric pain Status: Acute Assessment and Plan: egd with bx
--- NOTE | 2025-07-01 09:41 | S_PTH ---
PATIENT: Vinod Betancourt LOC: [facility] Leija#:[id number] AGE/SX: 35/M ROOM: RE07/01/[address]: Jermaine Chilel MD : 1990 BED: DIS: 07/01/2025 SPEC #: [id number] RECD: 07/01/25 10:39 STATUS: LAUREL REElham #: [id number] VERONICA: 07/01/25 09:[address]: Jermaine Chilel DEPT: [facility] Surgical RECD BY: Lary Bermudez ENTERED: 07/01/25 10:39 SP TYPE: Surgical OTHR DR: Jojo Donald APRN Tissues: A - Gastric Biopsy Procedures: Hematoxylin and Eosin Stain Gross and Microscopic Level 4
[2025-07-01 09:46] VITALS: BP 112/59; PULSE 90; RESP 16; O2SAT 96
[2025-07-01 09:56] VITALS: BP 114/69; PULSE 87; RESP 16; O2SAT 96
[2025-07-01 10:06] VITALS: BP 139/73; PULSE 80; RESP 16; O2SAT 99
== END 2025-07-01 10:18 | disposition home or self-care (01) ==
PROVIDERS: PCP Nurse Practitioner Adult Health; Referring Provider Nurse Practitioner Adult Health; Visit Provider Internal Medicine Gastroenterology
PROC: 0DJ08ZZ Inspection of Upper Intestinal Tract, Via Natural or Artificial Opening Endoscopic (ICD-10-PCS; CPT 43239; principal; 2025-07-01 10:15)
DX: K30 Functional dyspepsia (principal); F12.90 Cannabis use, unspecified, uncomplicated; E66.9 Obesity, unspecified; Z68.30 Body mass index [BMI] 30.0-30.9, adult
CPT/HCPCS: 43239; 88305; J2704; J7120